=== PATIENT | male | born 1960 | race Caucasian/White ===

== ENCOUNTER 2024-01-29 10:21 | Outpatient (CLI) | payer BC | END 2024-01-29 23:59 | disposition home or self-care (01) | LOC: RAD 10:21 | PROVIDERS: ATTEND Podiatrist Foot & Ankle Surgery | DX: M19.071 Primary osteoarthritis, right ankle and foot (principal); M25.471 Effusion, right ankle; M79.671 Pain in right foot; M77.31 Calcaneal spur, right foot | CPT/HCPCS: 73700 ==